=== PATIENT | female | born 1965 | race Asian ===

== ENCOUNTER → 2024-08-31 | Outpatient (CLI) | payer MEDICAID ==
[~2024-08-31] VITALS: Ht 162.6 cm; Wt 75.3 kg
[2024-08-31] MEDS: ADENOSINE 63 MG in GIVE UN-DILUTED 0 ML IV STA (13:26)
== END | disposition home or self-care (01) ==
LOC: XYW 11:05
PROVIDERS: ATTEND Student in an Organized Health Care Education/Training Program
DX: R94.31 Abnormal electrocardiogram [ECG] [EKG] (principal); I11.9 Hypertensive heart disease without heart failure; E11.9 Type 2 diabetes mellitus without complications; E78.5 Hyperlipidemia, unspecified
CPT/HCPCS: 78452; 93017; A9500; J0153